=== PATIENT | male | born 1985 | race Two or more races ===

== ENCOUNTER 2024-04-10 06:19 | Emergency (ER) | payer BC, SELFPAY ==
[2024-04-10 06:25] VITALS: BP 170/96; PULSE 89; RESP 16; TEMP 36.8; O2SAT 98
--- NOTE | 2024-04-10 07:04 | W.ED.GENAD ---
Discharge Plan Disposition Patient Disposition: Home Condition: Stable Discharge Details Clinical Impression: Conjunctivitis Primary Care Provider: Ros,Local ED Provider: Gómez Moore Discharge Instructions Additional Instructions: You are being treated for an eye infection in both your eyes. Use the eye ointment twice a day until the tube is gone or for 7 days whichever comes sooner Follow-up with your primary care provider if not better next week. He should also follow-up with them within 2 to 3 weeks for blood pressure recheck You can use [id number] antihistamine such as Claritin or Zyrtec daily and can also use Benadryl before bed. Follow dosing instructions on the packaging Return to the emergency department if you develop high fevers or severe worsening pain of the eyes or changes in vision HPI General Mode of arrival: ambulatory. Date/Time Provider Initiated Documentation: 04/10/24 06:28. Limitations to Documentation: no limitations. Information obtained by: patient. History of Present Illness 38 year old M presents to the emergency department with the chief complaint of itchy eyes, described as mild, Patient started experiencing this day(s) (2) and it has been constant. No relieving factors improve symptom(s), No exacerbating factors reported . Patient notes no other symptoms.. Patient did receive the following treatments prior to arrival, none General Stated Complaint: EyeProblem KANDI: 5 Review of Systems All systems reviewed & are unremarkable except as noted in HPI and below Constitutional Constitutional: Denies chills, Denies fever(s) and Denies weakness Eyes Eyes: Denies loss of vision ENT Ears, Nose, Mouth, and Throat: Denies change in voice Gastrointestinal Gastrointestinal: Denies vomiting Neurologic Neurologic: Denies loss of vision and Denies weakness Exam Const General: no acute distress Orientation: alert [facility] Head: normal to inspection Ears: external ears normal General nose exam: external nose normal Mouth: moist mucous membranes Eyes Alignment and Position: alignment normal Eyelids: eyelids normal Neck Neck: normal visual inspection Resp Effort & Inspection: normal respiratory effort and able to speak in complete sentences Cardio Rate: regular rate Skin General skin exam: no rashes or lesions noted Neuro General: patient alert and patient oriented x3 Extrem General: normal to inspection Psych Mental Status: mental status grossly normal Course Vital Signs Vital signs: Vital Signs Temperature 36.8 C 04/10/24 06:25 Pulse 89 04/10/24 06:25 Respiratory Rate 16 04/10/24 06:25 Blood Pressure 170/96 H 04/10/24 06:25 Pulse Oximetry 98 04/10/24 06:25 Temperature 36.8 C 04/10/24 06:25 Pulse 89 04/10/24 06:25 Respiratory Rate 16 04/10/24 06:25 Respiratory Effort Normal 04/10/24 06:28 Blood Pressure 170/96 H 04/10/24 06:25 Pulse Oximetry 98 04/10/24 06:25 Oxygen Delivery Method Room Air 04/10/24 06:25 Oxygen Flow Rate 0 04/10/24 06:25 Pain Level 0 04/10/24 06:25 Medical Decision Making 38-year-old male who denies any significant past medical history who is here in the area on a work job normally lives in [place]. He states that since yesterday has had itchy eyes bilaterally but the left is worse than the right. He denies any loss of vision, fevers, eye pain. He has 20/40 vision in both eyes. He says that he had discharge from both eyes this morning. Both eyes sclera's and conjunctive are erythematous. There is no current discharge. He denies any pain. He has no periorbital swelling. He has no deep eye pain. Pupils are equal and reactive to light with full range of motion of both eyes with no pain. He denies any trauma to the eyes. Intraocular pressures are 12 in the left and 13 on the right. I suspect allergic versus bacterial versus viral conjunctivitis. Will have him start [id number] antihistamines and also put him on erythromycin ointment. Advised to follow-up with his PCP if not better in a week and also follow-up with his PCP for blood pressure recheck. He has no symptoms of endorgan damage so do not feel any workup in the ER indicated for his blood pressure. He is stable for discharge, return precautions given Differential Diagnosis Differential Diagnosis: Conjunctivitis, bacterial versus allergic versus viral Quality:SDOH Health Related Social Needs: No Data to Display PFSH All Active Problems (Updated 04/10/24 @ 07:09 by Gómez Moore MD) Conjunctivitis (Acute) Social History Smoking risk assessment performed?: No
[2024-04-10] MEDS: Erythromycin Ophth Oint 3.5 GM TUBE OP (07:21)
[2024-04-10 07:23] VITALS: BP 145/100; PULSE 82; RESP 18; O2SAT 98
== END 2024-04-10 07:23 | disposition home or self-care (01) ==
LOC: ER 07:20
PROVIDERS: Emergency Provider Emergency Medicine
DX: H10.9 Unspecified conjunctivitis (principal)
CPT/HCPCS: 99283